=== PATIENT | male | born 1960 | race Two or more races ===

== ENCOUNTER 2016-05-09 14:08 | Emergency (ER) | payer MEDICAID, OTHER ==
[~2016-05-09] VITALS: Ht 170.2 cm; Wt 90.7 kg
[2016-05-09] MEDS ORDERED: HYDROmorphone HCL 2 MG/ML VL IV ONE (14:45)
[2016-05-09] MEDS ORDERED: ONDANSETRON HCL 4 MG/2 ML VIAL IV ONE (14:45)
[2016-05-09 16:54] VITALS: BP 152/92
[2016-05-09] MEDS ORDERED: KETOROLAC TROMETH 30 MG/ML 1ML VIAL IV ONE (18:15)
[2016-05-09] MEDS ORDERED: HYDROcodone-ACET 10/325MG TAB PO ONE (18:15)
== END 2016-05-09 18:26 | disposition home or self-care (01) ==
LOC: EDBD 14:08 → ER 14:15
DX: G89.29 Other chronic pain (principal); M54.5 Low back pain; M51.26 Other intervertebral disc displacement, lumbar region; Z85.9 Personal history of malignant neoplasm, unspecified
CPT/HCPCS: 72131; 96374; 96375; 99284; J1170; J1885; J2405

== ENCOUNTER 2019-03-09 20:01 | Emergency (ER) | payer MEDICARE, MEDICAID ==
[~2019-03-09] VITALS: Ht 182.9 cm; Wt 102.1 kg
[2019-03-09] MEDS ORDERED: KETOROLAC TROMETH 60MG/2ML VIAL IM ONE (20:15)
[2019-03-09] MEDS ORDERED: TRIAMCINOLONE 40MG/ML 1ML VIAL IX ONE (21:15)
[2019-03-09 22:24] VITALS: BP 135/72
== END 2019-03-09 22:41 | disposition home or self-care (01) ==
LOC: EDBD 20:01 → ER 20:02
DX: S33.5XXA Sprain of ligaments of lumbar spine, initial encounter (principal); E11.9 Type 2 diabetes mellitus without complications; E78.5 Hyperlipidemia, unspecified; Z90.49 Acquired absence of other specified parts of digestive tract; X50.0XXA Overexertion from strenuous movement or load, initial encounter; Y93.89 Activity, other specified; Y92.89 Other specified places as the place of occurrence of the external cause; Y99.8 Other external cause status
CPT/HCPCS: 20552; 96372; 99284; J1885; J3301